=== PATIENT | female | born 1930 | race Caucasian/White ===

== ENCOUNTER 2016-11-07 12:01 | Inpatient (IN) ==
[2016-11-07 13:09] LABS: Apearance,Urine CLEAR (Clear); Bilirubin,Urine Negative (Negative); Blood, Urine Negative (Negative); Glucose,Urine (UA) Negative (Negative); Hyaline Casts,Urine 1 /LPF (0-3); Ketones,Urine Negative (Negative); Mucus,Urine Occasional /LPF (Occasional); Nitrite,Urine Positive (Negative); Protein,Urine Negative; RBC,Urine <1 /HPF (0-4); Squamous Epithelial Cell,Urine Occasional /HPF (0-10); Urine Specific Gravity 1.011 (1.001-1.035); WBC,Urine <1 /HPF (0-6)
[2016-11-07 13:14] LABS: Urine Color Orange (Yellow)
--- NOTE | 2016-11-07 13:22 | XRay Report ---
XR chest 1V portable Indication: Shortness of breath and fever. Chest one view: Comparison 03/27/2016. Progressive right basilar atelectasis noted with chronic elevation of the right hemidiaphragm. No focal infiltrate is seen. Heart size remains normal with stable thoracic aortic tortuosity. Impression: Worsening right lower lobe atelectasis. PROCEDURE INTERPRETED AT [facility] DEPARTMENT OF RADIOLOGY Final Report Signed by: Harry Velazquez M.D.
--- NOTE | 2016-11-07 13:24 | XRay Report ---
XR abdomen 2V Indication: Abdominal pain. Abdomen 2 views: Severe degenerative changes with marked levoscoliosis of the lumbar spine is again noted, stable since 03/28/2016. Gaseous distention without dilatation of bowel is present in the right abdomen. No evidence of free air. Impression: Mild gaseous distention of bowel right mid abdomen, likely gastroenteritis or ileus. No obstruction. PROCEDURE INTERPRETED AT [facility] DEPARTMENT OF RADIOLOGY Final Report Signed by: Harry Velazquez M.D.
[2016-11-07 13:25] LABS: Basophils % 0.1 % (0.0-0.8); Eosinophils % 0.1 % (0.00-10.9); Hematocrit 32.2 VOL% (35.7-47.0); Hemoglobin 10.2 GM/DL (12.0-16.0); Immature Granulocytes % 0.5 %; Immature Granulocytes Absolute 0.08 #; Lymphocytes # 2.3 10*3/uL (1.4-4.0); Mean Corpuscular HGB Conc 31.7 GM/DL (32-36); Mean Corpuscular Hemoglobin 30 PG (27-34); Mean Corpuscular Volume 93.3 FL (87-102); Monocytes # 0.6 10*3/uL (0.11-0.8); Monocytes % 4.1 % (1.7-12.7); Neutrophils % 80.2 % (38.7-73.9); Platelet Count 200 T/CUMM (130-400); Red Blood Count 3.45 MC/CUMM (3.8-5.5); Red Cell Distribution Width 14.4 % (9.3-17.3)
[2016-11-07 14:01] LABS: Alanine Aminotransferase 16 U/L (13-56); Alkaline Phosphatase 69 U/L (45-117); Aspartate Amino Transferase 34 U/L (0-37); Bilirubin,Total < 0.39 MG/DL (0.2-1.0); Blood Urea Nitrogen 40 MG/DL (7-18); Calcium 8.5 MG/DL (8.5-10.1); Osmolality,Calculated 286.3 MOS/KG (273-304); Potassium 3.1 MMOL/L (3.5-5.1); Sodium 141 MMOL/L (136-145); Total Protein 6.9 G/DL (6.4-8.3)
[2016-11-07 14:05] LABS: Glucose 32 MG/DL (74-106)
[2016-11-07] MEDS ORDERED: DEXTROSE 50% 25 GM/50 ML VIAL IV ONE (14:05)
--- NOTE | 2016-11-07 14:08 | Emergency Department Note ---
Malick Tabares Gwan, am scribing for, and in the presence of, Manuel Avila MD 12:54. Margarita Tabares Phillip K, MD, personally performed the services described in this documentation, ascribed by Genoveva Teresa in my presence, and it is both accurate and complete . Arrival - Arrival Chief Complaint: Weakness Stated Complaint: FALL/ UTI S/S ED Nursing Triage Note: Brought in per EMS from home with c/o generalized weakness onset monday. Daughter reports patient with multiple falls since monday. +abdominal pain onset monday--resolved at present. Daughter reports has been giving patient AZO since monday. +subjective fever. Mode of Arrival: Stretcher Source: Patient, Family (Daughter), Old Records Reviewed, RN Notes Reviewed - History of Present Illness HPI Narrative: Pt is a 85 y/o female, hx of Hysterectomy and Cholecystectomy, who presents to the ED with a c/o generalized weakness with an onset 2 days ago. Daughter stated that the pt has a hx of multiple falls with an onset 3 days ago accompanied by abd pain and subjective fever. At time if triage, pt's temperature was 97.9. Daughter confirmed that she has given pt Tylenol and AZO pills with no relief, that pt has had a productive cough with sputum, that her last BM was 3 days ago and pt is followed by Dr. Loretta Yu. Daughter denies that the pt has had no trouble breathing or any use of ETOH/smoking cigarettes. Pt has a PMHx of HTN, [place], anxiety disorder, dyslipidemia, NIDDM, GERD and anemia. No other problems/complaints reported in ED. Onset (ago): day(s) Consistency: intermittent Severity: moderate Date of Last Menstrual Period: hyst Allergies/Adverse Reactions: Allergies Allergy/AdvReac Type Severity Reaction Status Date / Time codeine Allergy Unknown/Unable Verified 11/07/16 12:12 to obtain metformin Allergy Unknown/Unable Verified 11/07/16 12:12 to obtain Home Medications: Home Medications Medication Instructions Recorded Confirmed Type Amitriptyline HCl 50 mg PO BID 11/07/16 11/07/16 History Aspirin EC Tab 81 mg PO DAILY 11/07/16 11/07/16 History Calcium Carbonate 600 mg PO DAILY 11/07/16 11/07/16 History Carvedilol [Coreg] 3.125 mg PO BID 11/07/16 11/07/16 History Cholecalciferol (Vitamin D3) 2,000 unit PO DAILY 11/07/16 11/07/16 History [Vitamin D3] Docusate Sodium 100 mg PO BID 11/07/16 11/07/16 History Esomeprazole Magnesium 40 mg PO QAM 11/07/16 11/07/16 History [Esomeprazole] Ferrous Sulfate Tab [Feosol 325 mg PO DAILY 11/07/16 11/07/16 History Original Tab] Furosemide Tab [Lasix Tab] 20 mg PO DAILY 11/07/16 11/07/16 History Glimepiride 1 mg PO BID 11/07/16 11/07/16 History Losartan Potassium 25 mg PO DAILY 11/07/16 11/07/16 History Magnesium Chloride [Slow Mag] 64 mg PO DAILY 11/07/16 11/07/16 History Metoclopramide Tab [Reglan Tab] 5 mg PO BID 11/07/16 11/07/16 History Pantoprazole Tab [Protonix Tab] 40 mg PO BID 11/07/16 11/07/16 History Pregabalin [Lyrica] 50 mg PO BID 11/07/16 11/07/16 History Pregabalin [Lyrica] 50 mg PO BID 11/07/16 11/07/16 History Ranitidine Tab [Zantac Tab] 75 mg PO DAILY 11/07/16 11/07/16 History Simvastatin 40 mg PO PC SUPPER 11/07/16 11/07/16 History Sitagliptin Phosphate [Januvia] 50 mg PO DAILY 11/07/16 11/07/16 History hydrALAZINE TAB [Apresoline Tab] 25 mg PO TID 11/07/16 11/07/16 History metFORMIN [Glucophage] 500 mg PO BID 11/07/16 11/07/16 History traMADol TAB [Ultram] 50 mg PO BID PRN 11/07/16 11/07/16 History Review of System - Review of System 12 point system: reviewed and no additional remarkable complaints except as stated - Review of System Constitutional: Present: as per HPI, weakness (generalizsed) Medical,Surgical,& Family Hx - Medical History Cardio: History of: Hypertension, WI Psychological: History of: Anxiety Disorders Endocrine: History of: Diabetes Mellitus (NIDDM), Dyslipidemia Gastrointestinal: History of: GERD Hematology: History of: Anemia - Surgical History Abdominal Surgeries: Surgical HX of: Cholecystectomy Reproductive Surgeries: Surgical HX of;: Hysterectomy - Social History Smoking Status: Never smoker Frequency of Alcohol Use: None Type of Drug Use: None Exam Vital Signs: Vital Signs Temperature 97.9 F 11/07/16 12:01 Pulse Rate 81 11/07/16 12:27 Respiratory Rate 16 11/07/16 12:27 Blood Pressure 122/65 11/07/16 12:27 O2 Sat by Pulse Oximetry 95 11/07/16 12:27 - General General appearance: alert, in no apparent distress - Head Head exam: Present: atraumatic, normocephalic - Eye Eye exam: Present: PERRL, EOMI, other (pale conjunctiva) - ENT ENT exam: Present: mucous membranes dry - Neck Neck exam: Present: full ROM, trachea midline. Absent: tenderness - Chest Chest inspection: Present: symmetric chest wall rise. Absent: tenderness - Respiratory Respiratory exam: Present: rales (bilateral rales), other (decereased breathe sounds greater left) - Cardiovascular Cardiovascular exam: Present: regular rate, normal rhythm - Abdominal Exam Abdominal exam: Present: soft, normal bowel sounds - Neurological Exam Neurological exam: Present: alert, oriented X3, CN II-XII intact - Psychiatric Psychiatric exam: Present: normal affect, normal mood - Skin Skin exam: Present: pallor Results - Labs CBC & BMP: 11/07/16 13:05 11/07/16 13:05 Lab Results: I have reviewed the patients labs Labs: Laboratory Tests 11/07/16 11/07/16 12:21 13:05 WBC 15.0 H RBC 3.45 L Hgb 10.2 L Hct 32.2 L MCHC 31.7 L Plt Count 200 Neut % (Auto) 80.2 H Lymph % (Auto) 15.0 L Neut # (Auto) 12.0 H Urine pH 5.0 Ur Specific [place] 1.011 Urine Nitrate Positive H Urine Urobilinogen 4.0 H Urine RBC <1 Urine WBC <1 Hyaline Casts 1 Laboratory Tests 11/07/16 13:05 Sodium 141 Potassium 3.1 L Chloride 98 Carbon Dioxide 31 Anion Gap 15.1 H BUN 40 H Creatinine 2.30 H Glucose 32 L* Albumin 3.0 L Globulin 3.9 H Albumin/Globulin Ratio 0.7 L Laboratory Tests 11/07/16 13:05 B-Natriuretic Peptide 22 - Diagnostic Findings Procedure: Abdominal x-ray: report reviewed by me (Mild gaseous distention of bowel right mid abdomen, likely gastroenteritis or ileus. No obstruction.), Chest x-ray: report reviewed by me (Worsening right lower lobe atelectasis. ) Disposition Clinical Impression: possible ileus, Hypoglycemia, Multiple falls, atelectasis right base, Elevated white blood cell count Case discussed with: patient, patient's family Disposition: Still a Patient Condition: Guarded Additional Instructions: Admit to Dr. Bonnie Yu
[2016-11-07] MEDS ORDERED: DEXTROSE 50% 25 GM/50 ML VIAL IV STA (14:10)
[2016-11-07] MEDS ORDERED: ACETAMINOPHEN 325 MG TABLET PO PRN (14:17)
[2016-11-07] MEDS ORDERED: GLUCAGON 1 MG VIAL IM PRN (14:17)
[2016-11-07] MEDS ORDERED: ONDANSETRON 4 MG/2 ML VIAL IV PRN (14:17)
[2016-11-07] MEDS ORDERED: DEXTROSE 50% 25 GM/50 ML VIAL IV PRN (14:17)
[2016-11-07] MEDS ORDERED: SODIUM CHLORIDE 0.9% 1,000 ML IV SCH (14:30)
[2016-11-07] MEDS ORDERED: cefTRIAXone 1,000 MG VIAL IV SCH (14:30)
[2016-11-07] MEDS: cefTRIAXone 1,000 MG in SODIUM CHLORIDE 0.9% 100 ML IV SCH (16:50)
--- NOTE | 2016-11-07 19:27 | Internal Med History&Physical ---
Assessment and Plan (1) Bronchitis Status: Acute Current Visit: Yes (2) Anorexia Status: Acute Current Visit: Yes (3) Generalized weakness Status: Chronic Current Visit: Yes (4) Elevated white blood cell count Status: Acute Current Visit: Yes (5) Hypoglycemia Problem details: skipping meals Status: Resolved Current Visit: Yes (6) Multiple falls Status: Acute Current Visit: Yes History of Present Illness Chief complaint: worsening weakness History of present illness: Ms. Bustamante is a 85 year old female with history of HTN, hx [place], anxiety, OA, generalized debility, mild dementia, recurrent UTI, chronic fatigue and weakness , pneumonia, bronchitis, DM, multiple falls, who presented to ER with profound weakness and found to have bronchitis exacerbation and dehydration. She also has hypgoglycemia severe and UTI. She has not been eating or drinking recently at home. Her daughter has been caring for her at home, but patient may need nursing care for awhile before she is ready to return home. Very weak. Home Medications Medication Instructions Recorded Confirmed Type Amitriptyline HCl 50 mg PO BID 11/07/16 11/07/16 History Aspirin EC Tab 81 mg PO DAILY 11/07/16 11/07/16 History Calcium Carbonate 600 mg PO DAILY 11/07/16 11/07/16 History Carvedilol [Coreg] 3.125 mg PO BID 11/07/16 11/07/16 History Cholecalciferol (Vitamin D3) 2,000 unit PO DAILY 11/07/16 11/07/16 History [Vitamin D3] Docusate Sodium 100 mg PO BID 11/07/16 11/07/16 History Esomeprazole Magnesium 40 mg PO QAM 11/07/16 11/07/16 History [Esomeprazole] Ferrous Sulfate Tab [Feosol 325 mg PO DAILY 11/07/16 11/07/16 History Original Tab] Furosemide Tab [Lasix Tab] 20 mg PO DAILY 11/07/16 11/07/16 History Glimepiride 1 mg PO BID 11/07/16 11/07/16 History Losartan Potassium 25 mg PO DAILY 11/07/16 11/07/16 History Magnesium Chloride [Slow Mag] 64 mg PO DAILY 11/07/16 11/07/16 History Metoclopramide Tab [Reglan Tab] 5 mg PO BID 11/07/16 11/07/16 History Pantoprazole Tab [Protonix Tab] 40 mg PO BID 11/07/16 11/07/16 History Pregabalin [Lyrica] 50 mg PO BID 11/07/16 11/07/16 History Ranitidine Tab [Zantac Tab] 75 mg PO DAILY 11/07/16 11/07/16 History Simvastatin 40 mg PO PC SUPPER 11/07/16 11/07/16 History Sitagliptin Phosphate [Januvia] 50 mg PO DAILY 11/07/16 11/07/16 History hydrALAZINE TAB [Apresoline Tab] 25 mg PO TID 11/07/16 11/07/16 History metFORMIN [Glucophage] 500 mg PO BID 11/07/16 11/07/16 History traMADol TAB [Ultram] 50 mg PO BID PRN 11/07/16 11/07/16 History Allergies Allergy/AdvReac Type Severity Reaction Status Date / Time codeine Allergy Unknown/Unable Verified 11/07/16 12:12 to obtain metformin Allergy Unknown/Unable Verified 11/07/16 12:12 to obtain Medical,Surgical,& Family Hx - Medical History Cardio: History of: Hypertension, NE Psychological: History of: Anxiety Disorders Neurology: History of: Dementia Endocrine: History of: Diabetes Mellitus (NIDDM), Dyslipidemia Respiratory: History of: Bronchitis, Pneumonia Genitourinary: History of: Recurring Urinary Tract Infections Gastrointestinal: History of: GERD Musculoskeletal: History of: Musculoskeletal Problems (arthritis) Hematology: History of: Anemia - Surgical History Abdominal Surgeries: Surgical HX of: Cholecystectomy Reproductive Surgeries: Surgical HX of;: Hysterectomy - Family History Family History: Reports;: Family Diabetes (mother), Family Heart Disease (father ), Family Hypertension (mother, father), Family Stroke (mother) Denies;: Family Anesthesia Reaction, Family Cancer, Family Hematology, Family Psychiatric Problems, Additional Family History - Social History Smoking Status: Never smoker Frequency of Alcohol Use: None Type of Drug Use: None Marital Status: Lives With:: Spouse Functional capacity: uses cane/walker - Constitutional Constitutional: Present: chills, fatigue, fever(s), frequent falls, lethargy, malaise, weakness - Respiratory Respiratory: Present: cough, dyspnea - Musculoskeletal Musculoskeletal: Present: arthralgias - Neurological Neurological: Present: confusion - Psychiatric Psychiatric: Present: anxiety Exam - Constitutional Vitals: Period Temp Pulse Resp BP Sys/Crandall Pulse Ox Last 24 Hr 98.1 F 78-85 15-18 113-134/42-49 91-96 General appearance: no acute distress - Head Head exam: Present: normocephalic - Eye Eye exam: Present: EOMI - Respiratory Respiratory exam: Present: prolonged expiratory phase, rhonchi - Cardiovascular Cardiovascular exam: Present: tachycardia - GI/Abdominal GI/Abdominal exam: Present: normal bowel sounds, soft. Absent: tenderness - Extremities Exam Extremities exam: Absent: edema - Neurological Exam Neurological exam: Present: altered - Psychiatric Psychiatric exam: Present: flat affect - Skin Skin exam: Present: warm, dry Results - Labs CBC & BMP: 11/07/16 13:05 11/08/16 06:44 - EKG EKG shows: tachycardia, sinus rhythm - Diagnostic Findings Procedure: Chest x-ray: report reviewed by me, image reviewed by me ( atelectasis right lower lobe)
[2016-11-07] MEDS ORDERED: POTASSIUM CHLORIDE 20 MEQ TABLET PO ONE (19:32)
[2016-11-07] MEDS ORDERED: CARVEDILOL 3.125 MG TABLET PO SCH (21:00)
[2016-11-07] MEDS: methylPREDNISolone SOD SUC 40 MG/1 ML VIAL IV SCH (23:08)
[2016-11-07] MEDS: DOCUSATE SODIUM 100 MG CAPSULE PO SCH ×2 (23:08→23:09)
[2016-11-07] MEDS: POTASSIUM CHLORIDE 20 MEQ TABLET PO SCH (23:09)
[2016-11-07] MEDS: SODIUM CHLORIDE 0.45% 1,000 ML IV SCH (23:09)
[2016-11-07] MEDS: traMADol 50 MG TABLET PO PRN (23:23)
[2016-11-07] MEDS: ALBUTEROL/IPRATROPIUM 3 ML NEB RESP TX SCH (23:48)
[2016-11-07] MEDS: BUDESONIDE 0.25 MG/2 ML NEB RESP TX SCH (23:48)
[2016-11-08] MEDS: ALBUTEROL/IPRATROPIUM 3 ML NEB RESP TX SCH ×6 (03:52→23:57)
[2016-11-08] MEDS: methylPREDNISolone SOD SUC 40 MG/1 ML VIAL IV SCH ×3 (05:30→19:40)
[2016-11-08 08:01] LABS: Magnesium 1.5 MG/DL (1.8-2.4); Osmolality,Calculated 275.1 MOS/KG (273-304); Phosphorous 2.5 MG/DL (2.5-4.9); Potassium 3.6 MMOL/L (3.5-5.1); Risk Ratio 1.65
[2016-11-08] MEDS: BUDESONIDE 0.25 MG/2 ML NEB RESP TX SCH ×2 (08:09→19:12)
[2016-11-08] MEDS ORDERED: MAGNESIUM SULF RIDER 2 GM in PREMIX 1 EACH IV ONE (08:21)
[2016-11-08] MEDS ORDERED: GLUCAGON 1 MG VIAL IM PRN (08:27)
[2016-11-08] MEDS ORDERED: DEXTROSE 50% 25 GM/50 ML VIAL IV PRN (08:27)
[2016-11-08 09:30] LABS: Basophils % 0.1 % (0.0-0.8); Hematocrit 25.4 VOL% (35.7-47.0); Hemoglobin 8.2 GM/DL (12.0-16.0); Immature Granulocytes % 0.9 %; Immature Granulocytes Absolute 0.14 #; Lymphocytes # 1.4 10*3/uL (1.4-4.0); Lymphocytes % 8.8 % (21.3-54.2); Mean Corpuscular HGB Conc 32.3 GM/DL (32-36); Mean Corpuscular Hemoglobin 30 PG (27-34); Mean Corpuscular Volume 91.4 FL (87-102); Mean Platelet Volume 10.6 FL (9.6-12.0); Monocytes # 0.4 10*3/uL (0.11-0.8); Monocytes % 2.3 % (1.7-12.7); Neutrophils # 13.7 10*3/uL (1.4-7.4); Neutrophils % 87.9 % (38.7-73.9); Platelet Count 195 T/CUMM (130-400); Red Blood Count 2.78 MC/CUMM (3.8-5.5); Red Cell Distribution Width 14.3 % (9.3-17.3); White Blood Count 15.5 T/CUMM (4-12)
[2016-11-08] MEDS: POTASSIUM CHLORIDE 20 MEQ TABLET PO SCH ×2 (09:33→23:23)
[2016-11-08] MEDS: PANTOPRAZOLE 40 MG TABLET PO SCH (09:33)
[2016-11-08] MEDS: DOCUSATE SODIUM 100 MG CAPSULE PO SCH ×4 (09:34→23:23)
[2016-11-08] MEDS: FAMOTIDINE 20 MG TABLET PO SCH (09:34)
[2016-11-08] MEDS: ASPIRIN EC 81 MG TABLET PO SCH (09:34)
[2016-11-08] MEDS: SODIUM CHLORIDE 0.9% 1,000 ML IV SCH (09:35)
[2016-11-08] MEDS: CARVEDILOL 6.25 MG TABLET PO SCH ×2 (09:35→23:22)
[2016-11-08] MEDS ORDERED: SKIN HEALING OINT (AQUAPHOR) 50 GM TUBE TOP PRN (10:16)
[2016-11-08] MEDS: INSULIN REGULAR 100 UNIT/ML SUBCUT SCH ×3 (13:01→23:21)
[2016-11-08] MEDS: PHENYLEPH/MINERAL OIL/PETROLAT 57 GM TUBE TOP PRN (16:09)
[2016-11-08] MEDS: cefTRIAXone 1,000 MG in SODIUM CHLORIDE 0.9% 100 ML IV SCH (17:00)
--- NOTE | 2016-11-08 18:59 | Internal Med Progress Note ---
Assessment and Plan (1) Bronchitis Status: Acute Current Visit: Yes (2) Anorexia Status: Acute Current Visit: Yes (3) Generalized weakness Status: Chronic Current Visit: Yes (4) Elevated white blood cell count Status: Acute Current Visit: Yes (5) Multiple falls Status: Acute Current Visit: Yes (6) Anemia of chronic disease Status: Chronic Current Visit: Yes Internal Medicine - PN: Subj Interval history: Ms. Bustamante is a 85 year old female with history of HTN, hx [place], anxiety, OA, generalized debility, mild dementia, recurrent UTI, chronic fatigue and weakness , pneumonia, bronchitis, DM, multiple falls, who presented to ER with profound weakness and found to have bronchitis exacerbation and dehydration. She also has hypgoglycemia severe and UTI. She has not been eating or drinking recently at home. Her daughter has been caring for her at home, but patient may need nursing care for awhile before she is ready to return home. Very weak. Monday, she is feeling better. Will order PT/OT for tomorrow. Continue current treatment. Exam (Progress Note) - Constitutional Vitals: Period Temp Pulse Resp BP Sys/Crandall Pulse Ox Last 24 Hr 96.4 F-96.8 F 56-99 18-20 98-100/54-57 92-99 General appearance: no acute distress - Respiratory Respiratory exam: Present: clear to auscultation bilaterally. Absent: rhonchi - Cardiovascular Cardiovascular exam: Present: regular rate and rhythm - GI/Abdominal GI/Abdominal exam: Present: soft. Absent: tenderness - Extremities Exam Extremities exam: Absent: edema - Neurological Exam Neurological exam: Present: alert - Psychiatric Psychiatric exam: Present: normal mood - Skin Skin exam: Present: warm, dry Results - Labs CBC & BMP: 11/08/16 08:55 11/08/16 06:44
[2016-11-08] MEDS: SODIUM CHLORIDE 0.45% 1,000 ML IV SCH (21:11)
[2016-11-08] MEDS: traMADol 50 MG TABLET PO PRN (23:22)
[2016-11-09] MEDS ORDERED: SODIUM CHLORIDE 0.9% 250 ML IV PRN (01:26)
[2016-11-09] MEDS: SODIUM CHLORIDE 0.9% 1,000 ML IV SCH ×3 (01:36→16:23)
[2016-11-09] MEDS: ALBUTEROL/IPRATROPIUM 3 ML NEB RESP TX SCH ×6 (03:58→23:53)
[2016-11-09 06:04] LABS: Basophils % 0.1 % (0.0-0.8); Eosinophils % 0.1 % (0.00-10.9); Hematocrit 27.3 VOL% (35.7-47.0); Immature Granulocytes % 1.3 %; Immature Granulocytes Absolute 0.18 #; Lymphocytes # 1.5 10*3/uL (1.4-4.0); Lymphocytes % 10.5 % (21.3-54.2); Mean Corpuscular Hemoglobin 30 PG (27-34); Mean Corpuscular Volume 90.7 FL (87-102); Mean Platelet Volume 10.9 FL (9.6-12.0); Monocytes # 0.4 10*3/uL (0.11-0.8); Monocytes % 2.9 % (1.7-12.7); Neutrophils # 11.9 10*3/uL (1.4-7.4); Neutrophils % 85.1 % (38.7-73.9); Platelet Count 220 T/CUMM (130-400); Red Blood Count 3.01 MC/CUMM (3.8-5.5); Red Cell Distribution Width 14.3 % (9.3-17.3)
[2016-11-09 06:34] LABS: Albumin 2.6 G/DL (3.4-5.0); Bilirubin,Total 0.5 MG/DL (0.2-1.0); Calcium 8.5 MG/DL (8.5-10.1); Magnesium 2.2 MG/DL (1.8-2.4); Osmolality,Calculated 285.3 MOS/KG (273-304); Potassium 4.3 MMOL/L (3.5-5.1); Total Protein 5.7 G/DL (6.4-8.3)
[2016-11-09] MEDS: BUDESONIDE 0.25 MG/2 ML NEB RESP TX SCH ×2 (07:10→20:20)
[2016-11-09] MEDS: DOCUSATE SODIUM 100 MG CAPSULE PO SCH ×2 (08:27→21:37)
[2016-11-09] MEDS: FAMOTIDINE 20 MG TABLET PO SCH (08:27)
[2016-11-09] MEDS: CARVEDILOL 6.25 MG TABLET PO SCH ×2 (08:27→21:34)
[2016-11-09] MEDS: POTASSIUM CHLORIDE 20 MEQ TABLET PO SCH ×2 (08:27→21:37)
[2016-11-09] MEDS: ASPIRIN EC 81 MG TABLET PO SCH (08:27)
[2016-11-09] MEDS: PANTOPRAZOLE 40 MG TABLET PO SCH (08:27)
[2016-11-09] MEDS: INSULIN REGULAR 100 UNIT/ML SUBCUT SCH ×4 (08:28→21:31)
[2016-11-09] MEDS ORDERED: methylPREDNISolone SOD SUC 40 MG/1 ML VIAL IV SCH (09:00)
[2016-11-09] MEDS ORDERED: ENOXAPARIN 30 MG/0.3 ML SYRINGE SUBCUT SCH (09:00)
--- NOTE | 2016-11-09 10:24 | Physician Query Form ---
CLICK EDIT DOCUMENT TO SELECT QUERY ANSWER --> OK --> SIGN Naomi Galdamez RN Clinical Aerospace Project Manager W) [phone] (f) [phone] [email or web address] PROVIDERS: Make your selection(s) from the choices in EACH section by typing an "x" and enter comments in the comment section. Please use your independent medical judgment in providing your response. This request does not imply that any particular answer is desired or expected. CLINICAL INDICATORS: (Providers should not edit this section) Based on lab results of creatinine on admission of 2.30 with a GFR of 16 and decreased to 1.10. Pt. treated with IV fluids. Clarify which of the following most accurately represents the patient's renal status: ( ) Acute kidney injury (non-traumatic) ( ) Acute renal failure (x ) Acute renal failure with underlying Chronic Kidney Disease (CKD) - please provide stage below ( ) CKD - please provide stage below ( ) Other, please specify: ( ) Clinically unable to determine Chronic Kidney Disease Stages Source: National Kidney Disease Foundation ( ) Stage I (eGFR > or = 90) ( ) Stage II (eGFR 60 - 89) ( x) Stage III (eGFR 30 - 59) ( ) Stage IV (eGFR 15 - 29) ( ) Stage V (eGFR < 15 or dialysis) COMMENTS: Use of terms such as suspected, likely, or probable (associated with a specific diagnosis that is being evaluated, monitored, or treated as if it exists) are acceptable and can be restated in the discharge summary if not ruled out. MTDD
--- NOTE | 2016-11-09 10:31 | Physician Query Form ---
CLICK EDIT DOCUMENT TO SELECT QUERY ANSWER --> OK --> SIGN Naomi Galdamez RN Clinical Comic Book Writer W) [phone] (f) [phone] [email or web address] PROVIDERS: Make your selection(s) from the choices in EACH section by typing an "x" and enter comments in the comment section. Please use your independent medical judgment in providing your response. This request does not imply that any particular answer is desired or expected. 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 (x ) Malnutrition (x ) mild ( ) moderate ( ) severe ( x) Protein calorie malnutrition (x ) mild ( ) moderate ( ) severe ( ) Emaciation due to malnutrition ( ) Nutritional marasmus ( ) Cachexia (x ) Underweight ( ) No nutritional deficiency ( ) Other, please specify: ( ) Clinically unable to determine Mild Malnutrition (BMI < 18.5, % Normal Body Weight 85-95%) Moderate Malnutrition (BMI < 17, % Normal Body Weight 75-85%) Severe Malnutrition (BMI < 16, % Normal Body Weight < 75%) Source: Shira COMMENTS: Use of terms such as suspected, likely, or probable (associated with a specific diagnosis that is being evaluated, monitored, or treated as if it exists) are acceptable and can be restated in the discharge summary if not ruled out. MTDD
--- NOTE | 2016-11-09 10:55 | Ultrasound Report ---
US renal Bilateral Indication: Renal failure. Comparison: None. Technique: Multiple longitudinal and transverse real-time sonographic images of the kidneys and urinary bladder are obtained. Findings: Right kidney measures 8.3 cm. Left kidney measures 9.2 cm. No evidence of hydronephrosis. Renal parenchyma somewhat hyperechoic suggestive of medical renal disease. Bilateral cortical thinning suggested. IMPRESSION: Medical renal disease/renal atrophy without evidence of hydronephrosis. PROCEDURE INTERPRETED AT [facility] DEPARTMENT OF RADIOLOGY Final Report Signed by: Dr Henry Baron
[2016-11-09] MEDS: PHENYLEPH/MINERAL OIL/PETROLAT 57 GM TUBE TOP PRN (11:44)
[2016-11-09] MEDS ORDERED: risperiDONE 1 MG TABLET PO PRN (12:17)
[2016-11-09] MEDS: risperiDONE 1 MG TABLET PO STA ×2 (13:10→13:21)
[2016-11-09] MEDS ORDERED: HALOPERIDOL 5 MG/ML AMP IM ONE (13:26)
[2016-11-09] MEDS ORDERED: HALOPERIDOL 5 MG/ML AMP IM PRN (14:56)
[2016-11-09] MEDS: cefTRIAXone 1,000 MG in SODIUM CHLORIDE 0.9% 100 ML IV SCH (16:22)
--- NOTE | 2016-11-09 18:33 | Internal Med Progress Note ---
Assessment and Plan (1) Bronchitis Status: Acute Current Visit: Yes (2) Anorexia Status: Acute Current Visit: Yes (3) Generalized weakness Status: Chronic Current Visit: Yes (4) Elevated white blood cell count Status: Acute Current Visit: Yes (5) Multiple falls Status: Acute Current Visit: Yes (6) Anemia of chronic disease Status: Chronic Current Visit: Yes Internal Medicine - PN: Subj Interval history: Ms. Bustamante is a 85 year old female with history of HTN, hx [place], anxiety, OA, generalized debility, mild dementia, recurrent UTI, chronic fatigue and weakness , pneumonia, bronchitis, DM, multiple falls, who presented to ER with profound weakness and found to have bronchitis exacerbation and dehydration. She also has hypgoglycemia severe and UTI. She has not been eating or drinking recently at home. Her daughter has been caring for her at home, but patient may need nursing care for awhile before she is ready to return home. Very weak. Monday, she is feeling better. Will order PT/OT for tomorrow. Continue current treatment. Monday, discussed with daughter that patient is a full care patient. Daughter understands and will discuss with other siblings. Will consult Receiving Manager for usp placement. Code status will need to be addressed but was not part of today's discussion. Spoke with , and he, too, understands that Mariela needs usp placement. No one at home can take care of her, and she is no longer able to care for herself. Will increase Solumedrol again, because lungs had diffuse rhonchi today. She has been pulling off her oxygen support per nasal cannula. Exam (Progress Note) - Constitutional Vitals: Period Temp Pulse Resp BP Sys/Crandall Pulse Ox Last 24 Hr 97.1 F-98.5 F 69-96 16-22 106-175/57-72 91-99 Exam: General appearance: no acute distress - Respiratory Respiratory exam: Present: diffuse expiratory rhonchi bilaterally - Cardiovascular Cardiovascular exam: Present: regular rate and rhythm - GI/Abdominal GI/Abdominal exam: Present: soft. Absent: tenderness - Extremities Exam Extremities exam: Absent: edema - Neurological Exam Neurological exam: Present: alert - Psychiatric Psychiatric exam: Present: normal mood - Skin Skin exam: Present: warm, dry Vitals reviewed. Results - Labs CBC & BMP: 11/10/16 05:09 11/09/16 05:32
[2016-11-09] MEDS: POLYETHYLENE GLYCOL POWDER 17 GM PACK PO SCH (21:37)
[2016-11-09] MEDS: methylPREDNISolone SOD SUC 40 MG/1 ML VIAL IV SCH (21:39)
--- NOTE | 2016-11-09 22:34 | Nephrology Consult Note ---
History of Present Illness Chief complaint: ARF History of present illness: Ms. Bustamante is a 85 year old female admitted with acute renal failure and bronchitis. She was clinically volume depleted on admission. She has been given IV fluid and her renal function has improved. Her daughter states that her by mouth intake prior to admission was quite poor. She has dementia and has a history of prior episodes of acute worsening of renal insufficiency. She has had recurrent UTIs in the past. She currently denies dysuria. Home Medications Medication Instructions Recorded Confirmed Type Amitriptyline HCl 50 mg PO BID 11/07/16 11/07/16 History Aspirin EC Tab 81 mg PO DAILY 11/07/16 11/07/16 History Calcium Carbonate 600 mg PO DAILY 11/07/16 11/07/16 History Carvedilol [Coreg] 3.125 mg PO BID 11/07/16 11/07/16 History Cholecalciferol (Vitamin D3) 2,000 unit PO DAILY 11/07/16 11/07/16 History [Vitamin D3] Docusate Sodium 100 mg PO BID 11/07/16 11/07/16 History Esomeprazole Magnesium 40 mg PO QAM 11/07/16 11/07/16 History [Esomeprazole] Ferrous Sulfate Tab [Feosol 325 mg PO DAILY 11/07/16 11/07/16 History Original Tab] Furosemide Tab [Lasix Tab] 20 mg PO DAILY 11/07/16 11/07/16 History Glimepiride 1 mg PO BID 11/07/16 11/07/16 History Losartan Potassium 25 mg PO DAILY 11/07/16 11/07/16 History Magnesium Chloride [Slow Mag] 64 mg PO DAILY 11/07/16 11/07/16 History Metoclopramide Tab [Reglan Tab] 5 mg PO BID 11/07/16 11/07/16 History Pantoprazole Tab [Protonix Tab] 40 mg PO BID 11/07/16 11/07/16 History Pregabalin [Lyrica] 50 mg PO BID 11/07/16 11/07/16 History Ranitidine Tab [Zantac Tab] 75 mg PO DAILY 11/07/16 11/07/16 History Simvastatin 40 mg PO PC SUPPER 11/07/16 11/07/16 History Sitagliptin Phosphate [Januvia] 50 mg PO DAILY 11/07/16 11/07/16 History hydrALAZINE TAB [Apresoline Tab] 25 mg PO TID 11/07/16 11/07/16 History metFORMIN [Glucophage] 500 mg PO BID 11/07/16 11/07/16 History traMADol TAB [Ultram] 50 mg PO BID PRN 11/07/16 11/07/16 History Allergies Allergy/AdvReac Type Severity Reaction Status Date / Time codeine Allergy Unknown/Unable Verified 11/07/16 12:12 to obtain metformin Allergy Unknown/Unable Verified 11/07/16 12:12 to obtain Medical,Surgical,& Family Hx - Medical History Cardio: History of: Hypertension, [place] Psychological: History of: Anxiety Disorders Neurology: History of: Dementia Endocrine: History of: Diabetes Mellitus (NIDDM), Dyslipidemia Respiratory: History of: Bronchitis, Pneumonia Genitourinary: History of: Recurring Urinary Tract Infections Gastrointestinal: History of: GERD Musculoskeletal: History of: Musculoskeletal Problems (arthritis) Hematology: History of: Anemia - Surgical History Abdominal Surgeries: Surgical HX of: Cholecystectomy Reproductive Surgeries: Surgical HX of;: Hysterectomy - Family History Family History: Reports;: Family Diabetes (mother), Family Heart Disease (father ), Family Hypertension (mother, father), Family Stroke (mother) Denies;: Family Anesthesia Reaction, Family Cancer, Family Hematology, Family Psychiatric Problems, Additional Family History - Social History Smoking Status: Never smoker Frequency of Alcohol Use: None Type of Drug Use: None Review of Systems ROS unobtainable: due to mental status Exam - Vital Signs Vital signs: Period Temp Pulse Resp BP Sys/Crandall Pulse Ox Last 24 Hr 97.1 F-98.5 F 69-96 16-22 106-175/57-72 92-99 Exam: Gen.: Alert. Moderate confusion ENT: Pupils equal round reactive to light. EOMs intact. Mucous membranes moist. Neck: Supple. No JVD or bruit. Cardiovascular: Regular rate and rhythm. No murmur rub or gallop Lungs: Clear Abdomen: Soft. Nontender. Positive bowel sounds. No organomegaly Extremities: No edema Results - Labs CBC & BMP: 11/09/16 05:32 11/09/16 05:32 Assessment and Plan (1) Chronic kidney disease, stage II (mild) Status: Acute Assessment and plan: 85-year-old woman with: * Chronic renal failure stage II. Ultrasound shows increased cortical echogenicity * ARF secondary to volume depletion. Renal function has improved to her prior baseline with IV fluid. I discussed the need to offer her fluids frequently at home with her daughter. * Dementia * Bronchitis * Diabetes mellitus * Hypertension Current Visit: Yes (2) ARF (acute renal failure) Status: Acute Current Visit: Yes (3) Dementia Status: Acute Current Visit: Yes (4) Anorexia Status: Acute Current Visit: Yes (5) Bronchitis Status: Acute Current Visit: Yes (6) Anemia of chronic disease Status: Chronic Current Visit: Yes
[2016-11-10] MEDS: ALBUTEROL/IPRATROPIUM 3 ML NEB RESP TX SCH ×6 (03:49→23:26)
[2016-11-10] MEDS: methylPREDNISolone SOD SUC 40 MG/1 ML VIAL IV SCH ×2 (05:51→13:51)
[2016-11-10 05:53] LABS: Basophils % 0.1 % (0.0-0.8); Hematocrit 32.1 VOL% (35.7-47.0); Hemoglobin 10.5 GM/DL (12.0-16.0); Immature Granulocytes % 2.5 %; Immature Granulocytes Absolute 0.36 #; Lymphocytes # 1.5 10*3/uL (1.4-4.0); Lymphocytes % 10.6 % (21.3-54.2); Mean Corpuscular HGB Conc 32.7 GM/DL (32-36); Mean Corpuscular Hemoglobin 30 PG (27-34); Mean Corpuscular Volume 90.2 FL (87-102); Mean Platelet Volume 10.7 FL (9.6-12.0); Monocytes # 0.9 10*3/uL (0.11-0.8); Monocytes % 6.2 % (1.7-12.7); Neutrophils # 11.4 10*3/uL (1.4-7.4); Neutrophils % 80.6 % (38.7-73.9); Platelet Count 329 T/CUMM (130-400); Red Blood Count 3.56 MC/CUMM (3.8-5.5); Red Cell Distribution Width 14.2 % (9.3-17.3); White Blood Count 14.2 T/CUMM (4-12)
[2016-11-10] MEDS: SODIUM CHLORIDE 0.9% 1,000 ML IV SCH (05:57)
[2016-11-10 06:14] LABS: Lymphocytes 10 % (20-55); Segmented Neutrophils 81 % (50-85); Total Cells Counted 100
[2016-11-10 06:15] LABS: Microcytosis 1+; Platelet Estimate Normal
[2016-11-10] MEDS: BUDESONIDE 0.25 MG/2 ML NEB RESP TX SCH ×2 (07:47→19:14)
[2016-11-10 07:57] LABS: Alanine Aminotransferase 34 U/L (13-56); Albumin 2.7 G/DL (3.4-5.0); Alkaline Phosphatase 80 U/L (45-117); Aspartate Amino Transferase 63 U/L (0-37); Bilirubin,Total < 0.39 MG/DL (0.2-1.0); Blood Urea Nitrogen 20 MG/DL (7-18); Calcium 8.8 MG/DL (8.5-10.1); Glucose 162 MG/DL (74-106); Osmolality,Calculated 289.1 MOS/KG (273-304); Potassium 5.4 MMOL/L (3.5-5.1); Sodium 142 MMOL/L (136-145)
[2016-11-10] MEDS: hydrALAZINE 25 MG TABLET PO SCH ×2 (08:43→16:02)
[2016-11-10] MEDS: POLYETHYLENE GLYCOL POWDER 17 GM PACK PO SCH (08:43)
[2016-11-10] MEDS: PANTOPRAZOLE 40 MG TABLET PO SCH (08:43)
[2016-11-10] MEDS: CARVEDILOL 6.25 MG TABLET PO SCH (08:43)
[2016-11-10] MEDS: FAMOTIDINE 20 MG TABLET PO SCH (08:43)
[2016-11-10] MEDS: ASPIRIN EC 81 MG TABLET PO SCH (08:43)
[2016-11-10] MEDS: DOCUSATE SODIUM 100 MG CAPSULE PO SCH (08:43)
[2016-11-10] MEDS: POTASSIUM CHLORIDE 20 MEQ TABLET PO SCH (08:44)
[2016-11-10] MEDS ORDERED: ENOXAPARIN 40 MG/0.4 ML SYRINGE SUBCUT SCH (09:00)
--- NOTE | 2016-11-10 10:25 | Case Mgmt Physician Query Form ---
TB Signs and Symptoms Screening ([place]) INSTRUCTIONS: To be completed annually on residents/staff with a significant Tuberculin Skin Test (TST) upon admission/hire or a prior significant TST. To be completed on all staff at hire. Please respond to each listed symptom with an (X) in either the "YES" or "NO" box. Do you currently have any of the following symptoms: YES NO (x ) ( ) A cough If yes, is it: ( ) Productive ( x) Non- productive ( ) ( x) Hemoptysis (spitting up blood) ( ) (x ) Chest pains (x ) ( ) Weight Loss ( ) ( x) Fever ( ) (x ) Night Sweats (x ) ( ) Weakness ( x) ( ) Loss of Appetite ( ) ( ) Difficulty Breathing If you answered YES" to any of the above questions, how long have symptoms been present? Comments: She has chronic generalized weakness, debility and won't take deep breaths. YSABEL
--- NOTE | 2016-11-10 11:19 | Nephrology Progress Note ---
Nephrology - PN: Subj Interval history: She remains confused but is less agitated today. She denies shortness of breath. Exam (PN)-Nephrology - Vital Signs Vital signs: Period Temp Pulse Resp BP Sys/Crandall Pulse Ox Last 24 Hr 96.8 F-98.5 F 69-110 17-24 106-193/57-86 91-98 Exam: ENT: Normal Cardiovascular: Regular rate and rhythm. No murmur rub or gallop Lungs: Clear Extremities: No edema - Lab 11/10/16 05:09 11/10/16 04:56 Most recent lab results Calcium 8.8 MG/DL (8.5-10.1) 11/10/16 04:56 Phosphorus 2.5 MG/DL (2.5-4.9) 11/08/16 06:44 Magnesium 1.8 MG/DL (1.8-2.4) 11/10/16 05:09 Assessment and Plan (1) Chronic kidney disease, stage II (mild) Status: Acute Assessment and plan: 85-year-old woman with: * Chronic renal failure stage II. Ultrasound shows increased cortical echogenicity * ARF secondary to volume depletion. Renal function has improved to her prior baseline with IV fluid. I discussed the need to offer her fluids frequently at home with her daughter. * Hyperkalemia. Potassium supplement discontinued * Dementia * Bronchitis * Diabetes mellitus * Hypertension Current Visit: Yes (2) ARF (acute renal failure) Status: Acute Current Visit: Yes (3) Dementia Status: Acute Current Visit: Yes (4) Anorexia Status: Acute Current Visit: Yes (5) Bronchitis Status: Acute Current Visit: Yes (6) Anemia of chronic disease Status: Chronic Current Visit: Yes
[2016-11-10] MEDS: INSULIN REGULAR 100 UNIT/ML SUBCUT SCH ×3 (12:55→16:03)
[2016-11-10] MEDS ORDERED: TUBERCULIN SKIN TEST 0.1 ML SYRINGE INTRADERM ONE (13:00)
[2016-11-10] MEDS ORDERED: SODIUM POLYSTYRENE SULFATE 15 GM/60 ML BOTTLE RECTAL ONE (18:51)
--- NOTE | 2016-11-10 19:01 | Internal Med Progress Note ---
Assessment and Plan (1) Bronchitis Status: Acute Current Visit: Yes (2) Anorexia Status: Acute Current Visit: Yes (3) Generalized weakness Status: Chronic Current Visit: Yes (4) Elevated white blood cell count Status: Acute Current Visit: Yes (5) Multiple falls Status: Acute Current Visit: Yes (6) Anemia of chronic disease Status: Chronic Current Visit: Yes (7) Dementia Status: Chronic Current Visit: Yes Qualifiers: Dementia behavioral disturbance: with behavioral disturbance Internal Medicine - PN: Subj Interval history: Ms. Bustamante is a 85 year old female with history of HTN, hx AR, anxiety, OA, generalized debility, mild dementia, recurrent UTI, chronic fatigue and weakness , pneumonia, bronchitis, DM, multiple falls, who presented to ER with profound weakness and found to have bronchitis exacerbation and dehydration. She also has hypgoglycemia severe and UTI. She has not been eating or drinking recently at home. Her daughter has been caring for her at home, but patient may need nursing care for awhile before she is ready to return home. Very weak. Monday, she is feeling better. Will order PT/OT for tomorrow. Continue current treatment. Monday, discussed with daughter that patient is a full care patient. Daughter understands and will discuss with other siblings. Will consult [facility] Ophthalmologist for skilled nursing placement. Code status will need to be addressed but was not part of today's discussion. Spoke with , and he, too, understands that Mariela needs skilled nursing placement. No one at home can take care of her, and she is no longer able to care for herself. Will increase Solumedrol again, because lungs had diffuse rhonchi today. She has been pulling off her oxygen support per nasal cannula. , she has been refusing to eat, drink, and pulled out IV. Have discontinued solumedrol. Lungs sound better today. Nurses will encourage her to eat and take her pills. Discussed with DNR status. She is frail and in generalized decline. Failure to thrive. Exam (Progress Note) - Constitutional Vitals: Period Temp Pulse Resp BP Sys/Crandall Pulse Ox Last 24 Hr 96.8 F-98.2 F 84-110 17-24 123-193/64-86 91-98 Exam: General appearance: no acute distress - Respiratory Respiratory exam: Present: diffuse expiratory rhonchi improved - Cardiovascular Cardiovascular exam: Present: regular rate and rhythm - GI/Abdominal GI/Abdominal exam: Present: soft. Absent: tenderness - Extremities Exam Extremities exam: Absent: edema - Neurological Exam Neurological exam: Present: sundowning; altered - Psychiatric Psychiatric exam: Present: flat affect - Skin Skin exam: Present: warm, dry Vitals reviewed. Results - Labs CBC & BMP: 11/10/16 05:09 11/10/16 04:56
[2016-11-10] MEDS: SODIUM CHLORIDE 0.45% 1,000 ML IV SCH (21:06)
[2016-11-10] MEDS: METOPROLOL TARTRATE 5 MG/5 ML VIAL IV SCH (21:06)
[2016-11-11] MEDS: hydrALAZINE 25 MG TABLET PO SCH ×2 (02:29→10:56)
[2016-11-11] MEDS: INSULIN REGULAR 100 UNIT/ML SUBCUT SCH ×3 (02:30→12:16)
[2016-11-11] MEDS: CARVEDILOL 6.25 MG TABLET PO SCH ×2 (02:30→10:57)
[2016-11-11] MEDS: DOCUSATE SODIUM 100 MG CAPSULE PO SCH ×2 (02:30→10:57)
[2016-11-11] MEDS: METOPROLOL TARTRATE 5 MG/5 ML VIAL IV SCH ×2 (03:01→06:33)
[2016-11-11] MEDS: ALBUTEROL/IPRATROPIUM 3 ML NEB RESP TX SCH ×5 (03:12→19:31)
[2016-11-11 04:04] LABS: Albumin 2.6 G/DL (3.4-5.0); Bilirubin,Total 0.9 MG/DL (0.2-1.0); Calcium 8.9 MG/DL (8.5-10.1); Osmolality,Calculated 298.6 MOS/KG (273-304); Potassium 4.7 MMOL/L (3.5-5.1); Total Protein 5.7 G/DL (6.4-8.3)
[2016-11-11] MEDS: BUDESONIDE 0.25 MG/2 ML NEB RESP TX SCH ×2 (07:08→19:31)
[2016-11-11] MEDS: FAMOTIDINE 20 MG TABLET PO SCH (10:57)
[2016-11-11] MEDS: POLYETHYLENE GLYCOL POWDER 17 GM PACK PO SCH (10:57)
[2016-11-11] MEDS: ASPIRIN EC 81 MG TABLET PO SCH (10:57)
--- NOTE | 2016-11-11 11:30 | Nephrology Progress Note ---
Nephrology - PN: Subj Interval history: She remains confused. By mouth intake is poor Exam (PN)-Nephrology - Vital Signs Vital signs: Period Temp Pulse Resp BP Sys/Crandall Pulse Ox Last 24 Hr 97.4 F-99.4 F 107-131 17-36 122-158/62-83 92-99 Exam: ENT: Normal Cardiovascular: Regular rate and rhythm. No murmur rub or gallop Lungs: Clear Extremities: No edema - Lab 11/10/16 05:09 11/11/16 02:51 Most recent lab results Calcium 8.9 MG/DL (8.5-10.1) 11/11/16 02:51 Phosphorus 2.5 MG/DL (2.5-4.9) 11/08/16 06:44 Magnesium 1.8 MG/DL (1.8-2.4) 11/10/16 05:09 Assessment and Plan (1) Chronic kidney disease, stage II (mild) Status: Acute Assessment and plan: 85-year-old woman with: * Chronic renal failure stage II. Ultrasound shows increased cortical echogenicity * ARF secondary to volume depletion. Encourage by mouth fluids * Hyperkalemia. Potassium supplement discontinued * Dementia * Bronchitis * Diabetes mellitus * Hypertension Current Visit: Yes (2) ARF (acute renal failure) Status: Acute Current Visit: Yes (3) Dementia Status: Chronic Current Visit: Yes Qualifiers: Dementia behavioral disturbance: with behavioral disturbance (4) Anorexia Status: Acute Current Visit: Yes (5) Bronchitis Status: Acute Current Visit: Yes (6) Anemia of chronic disease Status: Chronic Current Visit: Yes
[2016-11-11] MEDS ORDERED: ACETAMINOPHEN 325 MG SUPP RECTAL PRN (11:54)
[2016-11-11] MEDS ORDERED: cefTRIAXone 1,000 MG VIAL IM SCH (12:00)
[2016-11-11] MEDS ORDERED: ENOXAPARIN 30 MG/0.3 ML SYRINGE SUBCUT SCH (12:00)
[2016-11-11] MEDS ORDERED: SODIUM CHLORIDE 0.9% 100 ML IV ONE (12:06)
[2016-11-11] MEDS ORDERED: cefTRIAXone 1,000 MG VIAL IV SCH (12:30)
--- NOTE | 2016-11-11 12:53 | Internal Med Progress Note ---
Assessment and Plan (1) Bronchitis Status: Acute Current Visit: Yes (2) Anorexia Status: Acute Current Visit: Yes (3) Generalized weakness Status: Chronic Current Visit: Yes (4) Elevated white blood cell count Status: Acute Current Visit: Yes (5) Multiple falls Status: Acute Current Visit: Yes (6) Anemia of chronic disease Status: Chronic Current Visit: Yes (7) Dementia Status: Chronic Current Visit: Yes Qualifiers: Dementia behavioral disturbance: with behavioral disturbance Internal Medicine - PN: Subj Interval history: Ms. Bustamante is a 85 year old female with history of HTN, hx PR, anxiety, OA, generalized debility, mild dementia, recurrent UTI, chronic fatigue and weakness , pneumonia, bronchitis, DM, multiple falls, who presented to ER with profound weakness and found to have bronchitis exacerbation and dehydration. She also has hypgoglycemia severe and UTI. She has not been eating or drinking recently at home. Her daughter has been caring for her at home, but patient may need nursing care for awhile before she is ready to return home. Very weak. Monday, she is feeling better. Will order PT/OT for tomorrow. Continue current treatment. Monday, discussed with daughter that patient is a full care patient. Daughter understands and will discuss with other siblings. Will consult Gear Grinding Machine Operator for custodial placement. Code status will need to be addressed but was not part of today's discussion. Spoke with , and he, too, understands that Mariela needs custodial placement. No one at home can take care of her, and she is no longer able to care for herself. Will increase Solumedrol again, because lungs had diffuse rhonchi today. She has been pulling off her oxygen support per nasal cannula. , she has been refusing to eat, drink, and pulled out IV. Have discontinued solumedrol. Lungs sound better today. Nurses will encourage her to eat and take her pills. Discussed with DNR status. She is frail and in generalized decline. Failure to thrive. Monday, patient seen on rounds and she exhibited agonal breathing. Rhonchi on exam. Concern for aspiration, so changed antibiotics. Discontinued all PO meds. Prognosis poor. Asked Nurse to notify family to come see her. Exam (Progress Note) - Constitutional Vitals: Period Temp Pulse Resp BP Sys/Crandall Pulse Ox Last 24 Hr 97.4 F-102 F 107-131 20-36 122-158/62-83 92-99 Exam: General appearance: very ill appearing - Respiratory Respiratory exam: Present: coarse breath sounds and rhonchi; agonal - Cardiovascular Cardiovascular exam: Present: regular rhythm and rapid rate - Extremities Exam Extremities exam: Absent: edema - Neurological Exam Neurological exam: Present: somnolent - Skin Skin exam: Present: cool, dry Vitals reviewed. Results - Labs CBC & BMP: 11/10/16 05:09 11/11/16 02:51
[2016-11-11] MEDS ORDERED: cefTRIAXone 1,000 MG in SODIUM CHLORIDE 0.9% 100 ML IV SCH (13:00)
[2016-11-11] MEDS ORDERED: MORPHINE 2 MG/1 ML SYRINGE IV PRN (13:00)
[2016-11-11] MEDS ORDERED: METOPROLOL TARTRATE 5 MG/5 ML VIAL IV SCH (14:00)
[2016-11-11] MEDS ORDERED: CLINDAMYCIN INJ 600 MG in PREMIX 1 EACH IV SCH (14:00)
[2016-11-11] MEDS: SODIUM CHLORIDE 0.45% 1,000 ML IV SCH (14:14)
[2016-11-11 16:41] VITALS: BP 90/55
--- NOTE | 2016-11-12 02:18 | Event Note ---
Notified by nurse later today that patient had passed. When seen earlier today, she had sinus tachycardia, rhonchi both lungs on exam and agonal breathing. She appeared very ill. Prognosis was poor. Concerned that she had aspirated. She had spiked a fever earlier in the day. Blood cultures ordered, urinalysis, a change in antibiotics. However, she had stopped eating a few days earlier, began refusing her PO meds, and pulled out her IV yesterday. Dementia had worsened since last seen in clinic a few months ago.
--- NOTE | 2016-11-21 08:22 | Physician Query Form ---
CLICK EDIT DOCUMENT TO SELECT QUERY ANSWER --> OK --> SIGN Naomi Galdamez RN Clinical Service Dispatcher W) [phone] (f) [phone] [email or web address] PROVIDERS: Make your selection(s) from the choices in EACH section by typing an "x" and enter comments in the comment section. Please use your independent medical judgment in providing your response. This request does not imply that any particular answer is desired or expected. CLINICAL INDICATORS: (Providers should not edit this section) Based on documentation of "acute bronchitis" and "rhonchi both lungs on exam and agonal breathing. Concerned that she had aspirated". Chest x-ray showed worsening right lower lobe atelectasis. Based on the above, could you clarify the appropriate diagnosis, if significant , that supports the above abnormalities and additional evaluation, monitoring, and/or treatment rendered: ( x) Pt. treated for aspiration bronchitis ( ) Pt. not treated for aspiration bronchitis ( ) Other, please specify: ( ) Clinically unable to determine COMMENTS: Use of terms such as suspected, likely, or probable (associated with a specific diagnosis that is being evaluated, monitored, or treated as if it exists) are acceptable and can be restated in the discharge summary if not ruled out. MTDD
== END 2016-11-11 19:25 | disposition expired | DRG 682 ==
LOC: N.EDINP 12:01 → EDUNIT# 12:01 → EDBD 12:01 → N.ED 12:01 → N.5E 16:09 → N.2E 11-09 16:05
PROVIDERS: ADMIT Internal Medicine; ATTEND Internal Medicine